=== PATIENT | female | born 1930 | race Caucasian/White ===

== ENCOUNTER 2018-02-26 12:39 | Inpatient (IN) ==
[2018-02-26] MEDS: *HR* OxyCODONE Immed Rel 5 MG TABLET PO PRN (20:10)
[2018-02-27 06:39] LABS: Basophils # 0.1 K/mcL (0.0-0.2); Basophils % 0.9 %; Eosinophils # 0.3 K/mcL (0.0-0.6); Eosinophils % 3.8 %; Hematocrit 31.9 % (35.3-44.9); Hemoglobin 10.7 g/dL (11.5-15.4); Immature Granulocytes % 0.6 % (0-4); Lymphocytes # 2.4 K/mcL (0.6-4.6); Lymphocytes % 27.1 %; Mean Corpuscular HGB Conc 33.5 g/dL (31.6-35.5); Mean Corpuscular Hemoglobin 31.3 pg (28.0-33.3); Mean Corpuscular Volume 93.3 fL (83.0-100.0); Mean Platelet Volume 11.1 fL (9.4-12.4); Monocytes # 0.8 K/mcL (0.0-1.3); Monocytes % 8.8 %; Neutrophils # 5.2 K/mcL (1.6-8.9); Platelet Count 174 K/mcL (140-400); Red Blood Count 3.42 M/mcL (3.82-4.97); Red Cell Distribution Width 14.3 % (11.5-14.5); Segmented Neutrophils % 58.8 %
[2018-02-27 06:45] LABS: INR 0.9; Prothrombin Time 10.6 Seconds (9.4-12.1)
[2018-02-27 06:48] LABS: Activated Partial Thrombo Time 26.5 Seconds (26.0-36.0)
[2018-02-27 07:15] LABS: Blood Urea Nitrogen 19 mg/dL (8-23); Calcium 8.7 mg/dL (8.6-10.3); Carbon Dioxide 30 mEq/L (23-29); Chloride 101 mEq/L (98-107); Glucose 89 mg/dL (70-105); Osmolality,Calculated 286 (280-300); Potassium 3.8 mEq/L (3.5-5.1); Sodium 137 mEq/L (136-145)
[2018-02-27 07:17] LABS: BUN/Creatinine Ratio 22 (6-26); eGFR For African Americans > 60 (> 60); eGFR For Non-African Americans > 60 (> 60)
[2018-02-27] MEDS: *HR* OxyCODONE Immed Rel 5 MG TABLET PO PRN ×2 (07:45→21:33)
[2018-02-27] MEDS: Ascorbic Acid 500 MG TABLET PO SCH (07:57)
[2018-02-27] MEDS: Cholecalciferol (D-3) 1,000 UNIT TABLET PO SCH (07:58)
[2018-02-27] MEDS: Aspirin Enteric Coated 81 MG Tablet PO SCH (07:58)
[2018-02-27] MEDS: Cyanocobalamin (B-12) 1,000 MCG TABLET PO SCH (07:58)
[2018-02-27] MEDS: Multivit/Ca/Min/Fe/FA 1 TAB TABLET PO SCH (07:58)
[2018-02-27] MEDS: Acetaminophen 325 MG TABLET PO PRN ×2 (10:45→17:07)
[2018-02-27] MEDS ORDERED: MOM Conc 10 ML UD.LIQ PO PRN (16:10)
--- NOTE | 2018-02-27 16:17 | Internal Med History&Physical ---
Date of Encounter: 02/27/18 Time of Encounter: 15:45 Assessment and Plan (1) Status post total hip replacement, right Current visit: No Status: Acute Physical therapy and occupational therapy evaluation with ongoing interventions will be done. Lovenox will be used for DVT prophylaxis. (2) Acute blood loss anemia Current visit: No Status: Acute Monitor CBC. (3) Postoperative urinary retention Current visit: No Status: Acute Continue Allen catheter. Urology follow-up as scheduled March 06. Internal Medicine - H&P: HPI Chief complaint: Hip replacement Admitted From: Hospital to Hospital Transfer Plans for Post Hospital Care: Home History of present illness: Ms. Turpin is a 87 year old female who was transferred to [facility] swing bed February 26 after a February [address] [facility] for elective total hip replacement. Postop course was remarkable for azotemia which resolved, anemia requiring blood transfusions, and urinary retention. Urology consulted and recommended indwelling Allen catheter for 1 week with urology follow-up 2017 in [place]. She has DJD but denies gout or other bone joint or muscle disorders. Past Med Surg Social Fam HX - Past Medical History Medical history: no medical history Additional medical history: OA Psychiatric history: no psych history - Past Surgical History Surgical History: non-contributory Additional surgical history: colonoscopy, d&c, colon polyps - Social History Smoking Status: Never smoker Smokeless Tobacco Status: No Alcohol use: none Drug use: none - Family History Mother Living Status: Hx Family Cancer: Yes (Breast) Father Living Status: Hx Family Cancer: Yes (Bladder) Internal Medicine - H&P: Meds Acetaminophen [Tylenol] 650 mg PO Q6HR PRN 02/23/18 [History] Ascorbic Acid [Vitamin C] 1,000 mg PO DAILY 02/23/18 [History] Aspirin Enteric Coated [Aspirin EC] 325 mg PO BID #20 tablet. 02/23/18 [Rx] Cholecalciferol (D-3) [Vitamin D] 1,000 unit PO DAILY 02/23/18 [History] Cyanocobalamin (Vitamin B-12) [Vitamin B-12] 1,000 mcg PO DAILY 02/23/18 [ History] Multivitamin [One Daily Multivitamin] 1 tab PO DAILY 02/23/18 [History] OxyCODONE Immed Rel [Roxicodone 5 MG] 5 mg PO Q6HR PRN 7 Days #28 tablet [Rx] 3 Allergy/AdvReac Type Severity Reaction Status Date / Time No Known Allergies Allergy Verified 02/23/18 12:30 All Systems PM: A 10-system review of systems was performed and is negative for pertinent findings except as documented above in the HPI. Review of systems: Gen.: She states her weight is stable the past few months Cardiovascular: She denies hypertension [place] heart failure angina DVT or pulmonary embolus Respiratory: She is a lifelong nonsmoker and denies chronic lung disease GI: She denies disorders of her liver gallbladder or exocrine pancreas : She denies hematuria dysuria or kidney stones. She has had urinary retention requiring Allen catheter following hip replacement surgery as per history of present illness. Neurologic: She denies large distribution strokes or seizures. Endocrine: She denies diabetes thyroid disease or hyperlipidemia Hematology/oncology: She had anemia during a recent [facility] stay requiring blood transfusion. She takes vitamin B12 at home. She denies internal malignancies or other blood disorders. Psychiatric: She denies anxiety depression or other mental health issues [place] skeletal: As per history of present illness: - Constitutional Vitals: Temp Pulse Resp BP Pulse Ox 97.9 F 96 16 133/75 96 02/27/18 08:49 02/27/18 08:49 02/27/18 08:49 02/27/18 08:49 02/27/18 08:49 Exam: Gen.: She is a well-developed well-nourished female resting comfortably in bed who appears in no acute distress at present time HEENT: Head is atraumatic and normocephalic. Eyes: EOMI. There is no scleral icterus. Mouth: Mucosa is moist. Neck: Supple and nontender. There is no thyromegaly or adenopathy noted. Heart: Regular without murmurs gallops or ectopics Lungs: No wheezes or crackles are heard. Abdomen: Soft and nontender. No masses or guarding are noted. Extremities: There is no cyanosis or clubbing noted. There is no edema of the left leg. There is 1+ edema of the dorsum of the right foot and lower leg. Dorsalis pedis and posttibial pulses are 1+ palpable in the left leg and trace palpable in the right leg. Neurologic: Mental status: She is talkative and a good historian. Cranial nerves: Smile is symmetric. Forehead wrinkles bilaterally. Tongue protrudes midline. EOMI. Motor: There is no pronator drift. Cerebellar: Finger to nose is intact bilaterally. Skin: Warm and dry Internal Med - H&P Results - Labs CBC & Chem 7: 02/27/18 06:16 02/27/18 06:16 Labs: Short CBC 02/27/18 Range/Units 06:16 WBC 8.9 (4.3-11.1) K/mcL Hgb 10.7 L (11.5-15.4) g/dL Hct 31.9 L (35.3-44.9) % Plt Count 174 (140-400) K/mcL Neutrophils # 5.2 (1.6-8.9) K/mcL BMP 02/27/18 06:16 Sodium 137 Potassium 3.8 Chloride 101 Carbon Dioxide 30 H BUN 19 Creatinine 0.86 Glucose 89 Calcium 8.7
[2018-02-27] MEDS: *HR* Enoxaparin 40 MG/0.4 ML SYRINGE SQ SCH (17:08)
[2018-02-28] MEDS: *HR* Enoxaparin 40 MG/0.4 ML SYRINGE SQ SCH (06:18)
[2018-02-28] MEDS: Aspirin Enteric Coated 81 MG Tablet PO SCH (08:54)
[2018-02-28] MEDS: Multivit/Ca/Min/Fe/FA 1 TAB TABLET PO SCH (08:54)
[2018-02-28] MEDS: Cyanocobalamin (B-12) 1,000 MCG TABLET PO SCH (08:54)
[2018-02-28] MEDS: Ascorbic Acid 500 MG TABLET PO SCH (08:54)
[2018-02-28] MEDS: Cholecalciferol (D-3) 1,000 UNIT TABLET PO SCH (08:55)
--- NOTE | 2018-02-28 15:04 | Internal Med Progress Note ---
Date of Encounter: 02/28/18 Time of Encounter: 14:55 - Assessment and plan (1) Status post total hip replacement, right Current Visit: No Status: Acute Assessment and plan: February 28. Continue therapy interventions with Lovenox. (2) Acute blood loss anemia Current Visit: No Status: Acute Assessment and plan: February 28. Hemoglobin improved to 10.7. Continue to monitor CBC periodically. (3) Postoperative urinary retention Current Visit: No Status: Acute Assessment and plan: February 28. Continue Allen catheter with urology follow-up March 06. - Subjective Interval history: February 28. She has no new complaints. - Constitutional Vitals: Temp Pulse Resp BP Pulse Ox 98 F 75 16 120/70 97 02/28/18 06:19 02/28/18 06:19 02/28/18 06:19 02/28/18 06:19 02/28/18 06:19 Exam: She is resting comfortably in bed and appears in no acute distress. Her affect is bright and cheerful. Extremities show unchanged edema from yesterday. I reviewed her medications and lab results. Internal Medicine: Result - Labs CBC & Chem 7: 02/27/18 06:16 02/27/18 06:16 - ABG Interpretation ABG results: PT/INR, D-dimer PT 10.6 Seconds (9.4-12.1) 02/27/18 06:16 Consult Discharge Plan - Plan Referrals: Aron Patel MD [Primary Care Provider] - 1 week
[2018-02-28] MEDS: *HR* OxyCODONE Immed Rel 5 MG TABLET PO PRN (18:02)
[2018-02-28] MEDS: Acetaminophen 325 MG TABLET PO PRN (23:57)
[2018-03-01] MEDS: Acetaminophen 325 MG TABLET PO PRN ×2 (08:02→15:28)
[2018-03-01] MEDS: Ascorbic Acid 500 MG TABLET PO SCH (08:02)
[2018-03-01] MEDS: Cholecalciferol (D-3) 1,000 UNIT TABLET PO SCH (08:02)
[2018-03-01] MEDS: Aspirin Enteric Coated 81 MG Tablet PO SCH (08:02)
[2018-03-01] MEDS: Cyanocobalamin (B-12) 1,000 MCG TABLET PO SCH (08:02)
[2018-03-01] MEDS: Multivit/Ca/Min/Fe/FA 1 TAB TABLET PO SCH (08:03)
[2018-03-01] MEDS: *HR* Enoxaparin 40 MG/0.4 ML SYRINGE SQ SCH (08:03)
--- NOTE | 2018-03-01 11:38 | Internal Med Progress Note ---
Date of Encounter: 03/01/18 Time of Encounter: 11:30 - Assessment and plan (1) Status post total hip replacement, right Current Visit: No Status: Acute Assessment and plan: February 28. Continue therapy interventions with Lovenox. (2) Acute blood loss anemia Current Visit: No Status: Acute Assessment and plan: February 28. Hemoglobin improved to 10.7. Continue to monitor CBC periodically. March 01. Recheck labs in a.m. including iron studies. (3) Postoperative urinary retention Current Visit: No Status: Acute Assessment and plan: February 28. Continue Allen catheter with urology follow-up March 06. (4) RLS (restless legs syndrome) Current Visit: Yes Status: Acute Assessment and plan: March 01. Check iron studies and start low-dose Neurontin. (5) Cold sore Current Visit: Yes Status: Acute Assessment and plan: March 01. I explained she was probably past the time where antiviral agents would be beneficial. She will use topical Chapstick etc. for symptomatic relief. - Subjective Interval history: February 28. She has no new complaints. March 01. She has no new complaints except she has small "cold sores" on her upper lip that been present for at least 2 days. She also reports she had recurrent episode of "leg jerking" last evening. She has had this occasionally in the past. - Constitutional Vitals: Temp Pulse Resp BP Pulse Ox 98.4 F 89 18 135/74 97 03/01/18 07:48 03/01/18 07:48 03/01/18 07:48 03/01/18 07:48 03/01/18 07:48 Exam: She is resting comfortably in bed and appears in no acute distress. She has very small erosions at the upper border of her upper lip. No open ulcerative areas are seen. Her right leg edema is perhaps slightly lessened. I reviewed her medications and lab results. Internal Medicine: Result - Labs CBC & Chem 7: 02/27/18 06:16 02/27/18 06:16 - ABG Interpretation ABG results: PT/INR, D-dimer PT 10.6 Seconds (9.4-12.1) 02/27/18 06:16 Consult Discharge Plan - Plan Referrals: Aron Patel MD [Primary Care Provider] - 1 week
[2018-03-01] MEDS: *HR* OxyCODONE Immed Rel 5 MG TABLET PO PRN (21:23)
[2018-03-01] MEDS: Gabapentin 100 MG CAPSULE PO SCH (23:01)
[2018-03-02 06:09] LABS: Basophils # 0.1 K/mcL (0.0-0.2); Basophils % 1.2 %; Eosinophils # 0.4 K/mcL (0.0-0.6); Eosinophils % 5.4 %; Hematocrit 31.7 % (35.3-44.9); Hemoglobin 10.8 g/dL (11.5-15.4); Lymphocytes # 2.1 K/mcL (0.6-4.6); Lymphocytes % 26.4 %; Mean Corpuscular HGB Conc 34.1 g/dL (31.6-35.5); Mean Corpuscular Hemoglobin 32.1 pg (28.0-33.3); Mean Corpuscular Volume 94.3 fL (83.0-100.0); Mean Platelet Volume 10.7 fL (9.4-12.4); Monocytes # 0.9 K/mcL (0.0-1.3); Monocytes % 11.5 %; Neutrophils # 4.4 K/mcL (1.6-8.9); Platelet Count 262 K/mcL (140-400); Red Blood Count 3.36 M/mcL (3.82-4.97); Red Cell Distribution Width 13.9 % (11.5-14.5); Segmented Neutrophils % 54.5 %
[2018-03-02] MEDS: *HR* Enoxaparin 40 MG/0.4 ML SYRINGE SQ SCH (06:27)
[2018-03-02 08:58] LABS: % Iron Saturation 25 % (15-50); Iron 63 mcg/dL (50-170); Transferrin 179 mg/dL (203-362)
[2018-03-02 09:16] LABS: Ferritin 190 ng/mL (10-120)
[2018-03-02] MEDS: Aspirin Enteric Coated 81 MG Tablet PO SCH (09:36)
[2018-03-02] MEDS: Cyanocobalamin (B-12) 1,000 MCG TABLET PO SCH (09:36)
[2018-03-02] MEDS: Cholecalciferol (D-3) 1,000 UNIT TABLET PO SCH (09:36)
[2018-03-02] MEDS: Multivit/Ca/Min/Fe/FA 1 TAB TABLET PO SCH (09:36)
[2018-03-02] MEDS: Ascorbic Acid 500 MG TABLET PO SCH (09:36)
[2018-03-02] MEDS: Acetaminophen 325 MG TABLET PO PRN ×2 (09:37→16:59)
[2018-03-02 16:50] LABS: Bilirubin,Urine Negative (Negative); Blood,Urine Moderate (Negative); Clarity,Urine Clear (Clear); Color,Urine Yellow (Yellow); Glucose,Urine (UA) Normal (Normal); Ketones,Urine Trace mg/dL (Negative); Leukocyte Esterase,Urine Large (Negative); Nitrite,Urine Negative (Negative); Protein,Urine Negative (Neg-Trace); Urobilinogen,Urine Normal (Normal)
[2018-03-02 17:01] LABS: Bacteria,Urine Moderate per hpf (None-Few); Granular Casts,Urine Few per lpf (None Seen); Squamous Epithelial Cell,Urine None Seen per lpf (None-Few)
--- NOTE | 2018-03-02 18:34 | Internal Med Progress Note ---
Date of Encounter: 03/02/18 Time of Encounter: 18:15 - Assessment and plan (1) Status post total hip replacement, right Current Visit: No Status: Acute Assessment and plan: February 28. Continue therapy interventions with Lovenox. March 02. Continue therapy. Lovenox will be discontinued and Xarelto started since she has DVT in right posterior tibial, right peroneal, and right gastrocnemius vein. (2) Right leg DVT Current Visit: Yes Status: Acute Assessment and plan: March 02. Discontinue Lovenox and begin Xarelto. I explained she would likely need anticoagulation for a minimum of 3 months. Qualifiers: Affected thrombotic vein of extremity: unspecified vein of extremity Chronicity: acute Qualified Code(s): I82.401 - Acute embolism and thrombosis of unspecified deep veins of right lower extremity (3) Acute blood loss anemia Current Visit: No Status: Acute Assessment and plan: February 28. Hemoglobin improved to 10.7. Continue to monitor CBC periodically. March 01. Recheck labs in a.m. including iron studies. March 02. Hemoglobin improved to 10.8. Anemia testing showed iron 63, transferrin saturation 25%, transferrin 179, and ferritin 190. (4) Postoperative urinary retention Current Visit: No Status: Acute Assessment and plan: February 28. Continue Allen catheter with urology follow-up March 06. (5) RLS (restless legs syndrome) Current Visit: Yes Status: Acute Assessment and plan: March 01. Check iron studies and start low-dose Neurontin. March 02. Iron studies did not show iron deficiency. Family did not wish her to take Neurontin. (6) Cold sore Current Visit: Yes Status: Acute Assessment and plan: March 01. I explained she was probably past the time where antiviral agents would be beneficial. She will use topical Chapstick etc. for symptomatic relief. (7) UTI (urinary tract infection) Current Visit: Yes Status: Acute Assessment and plan: Urine culture was sent earlier today. She will start Bactrim DS twice a day with lactobacillus. Qualifiers: Urinary tract infection type: site unspecified Hematuria presence: with hematuria Qualified Code(s): N39.0 - Urinary tract infection, site not specified; R31.9 - Hematuria, unspecified - Subjective Interval history: February 28. She has no new complaints. March 01. She has no new complaints except she has small "cold sores" on her upper lip that been present for at least 2 days. She also reports she had recurrent episode of "leg jerking" last evening. She has had this occasionally in the past. March 02. Her family was concerned about the swelling in the right leg and requested Doppler study be done. Patient also had some discomfort around the Allen catheter and family requested UA with C/S be done. She has no other new complaints. - Constitutional Vitals: Temp Pulse Resp BP Pulse Ox 98.3 F 76 15 114/72 95 03/02/18 08:00 03/02/18 08:00 03/02/18 08:00 03/02/18 08:00 03/02/18 08:00 Exam: She is resting comfortably in bed and appears in no acute distress. Her affect is overall cheerful. I reviewed her medications and lab results. I discussed the UA report and venous Doppler study with patient and daughter. Internal Medicine: Result - Labs CBC & Chem 7: 03/02/18 05:10 02/27/18 06:16 Labs: Short CBC 03/02/18 Range/Units 05:10 WBC 8.1 (4.3-11.1) K/mcL Hgb 10.8 L (11.5-15.4) g/dL Hct 31.7 L (35.3-44.9) % Plt Count 262 D (140-400) K/mcL Neutrophils # 4.4 (1.6-8.9) K/mcL Urine 03/02/18 Range/Units 16:20 Urine Color Yellow (Yellow) Urine Clarity Clear (Clear) Urine pH 7.0 (5.0-8.0) pH Units Ur Specific [place] 1.010 (1.010-1.025) Urine Protein Negative (Neg-Trace) mg/dL Urine Glucose (UA) Normal (Normal) mg/dL - ABG Interpretation ABG results: PT/INR, D-dimer PT 10.6 Seconds (9.4-12.1) 02/27/18 06:16 Consult Discharge Plan - Plan Referrals: Aron Patel MD [Primary Care Provider] - 1 week
[2018-03-02] MEDS: Gabapentin 100 MG CAPSULE PO SCH (19:36)
[2018-03-02] MEDS: *HR* Rivaroxaban 15 MG TABLET PO SCH (20:33)
[2018-03-02] MEDS: Lactobacillus 1 EACH CAP.SPRINK PO SCH (20:33)
[2018-03-02] MEDS: *HR* OxyCODONE Immed Rel 5 MG TABLET PO PRN (20:35)
[2018-03-02] MEDS ORDERED: Sulfamethoxazole/Trimeth DS 1 EACH TABLET PO SCH (21:00)
[2018-03-03] MEDS: *HR* OxyCODONE Immed Rel 5 MG TABLET PO PRN ×3 (04:01→20:04)
[2018-03-03] MEDS: Ascorbic Acid 500 MG TABLET PO SCH (08:22)
[2018-03-03] MEDS: *HR* Rivaroxaban 15 MG TABLET PO SCH ×2 (08:23→20:05)
[2018-03-03] MEDS: Cholecalciferol (D-3) 1,000 UNIT TABLET PO SCH (08:23)
[2018-03-03] MEDS: Lactobacillus 1 EACH CAP.SPRINK PO SCH ×2 (08:23→20:05)
[2018-03-03] MEDS: Cyanocobalamin (B-12) 1,000 MCG TABLET PO SCH (08:23)
[2018-03-03] MEDS: Sulfamethoxazole/Trimeth DS 1 EACH TABLET PO SCH ×2 (08:23→20:04)
[2018-03-03] MEDS: Multivit/Ca/Min/Fe/FA 1 TAB TABLET PO SCH (08:23)
--- NOTE | 2018-03-03 19:07 | Internal Med Progress Note ---
Date of Encounter: 03/03/18 Time of Encounter: 18:55 - Assessment and plan (1) Status post total hip replacement, right Current Visit: No Status: Acute Assessment and plan: February 28. Continue therapy interventions with Lovenox. March 02. Continue therapy. Lovenox will be discontinued and Xarelto started since she has DVT in right posterior tibial, right peroneal, and right gastrocnemius vein. March 03. Continue PT/OT with Xarelto. (2) Right leg DVT Current Visit: Yes Status: Acute Assessment and plan: March 02. Discontinue Lovenox and begin Xarelto. I explained she would likely need anticoagulation for a minimum of 3 months. March 03. Continue Xarelto. Qualifiers: Affected thrombotic vein of extremity: unspecified vein of extremity Chronicity: acute Qualified Code(s): I82.401 - Acute embolism and thrombosis of unspecified deep veins of right lower extremity (3) Acute blood loss anemia Current Visit: No Status: Acute Assessment and plan: February 28. Hemoglobin improved to 10.7. Continue to monitor CBC periodically. March 01. Recheck labs in a.m. including iron studies. March 02. Hemoglobin improved to 10.8. Anemia testing showed iron 63, transferrin saturation 25%, transferrin 179, and ferritin 190. (4) Postoperative urinary retention Current Visit: No Status: Acute Assessment and plan: February 28. Continue Allen catheter with urology follow-up March 06. (5) RLS (restless legs syndrome) Current Visit: Yes Status: Acute Assessment and plan: March 01. Check iron studies and start low-dose Neurontin. March 02. Iron studies did not show iron deficiency. Family did not wish her to take Neurontin. (6) Cold sore Current Visit: Yes Status: Acute Assessment and plan: March 01. I explained she was probably past the time where antiviral agents would be beneficial. She will use topical Chapstick etc. for symptomatic relief. (7) UTI (urinary tract infection) Current Visit: Yes Status: Acute Assessment and plan: March 02. Urine culture was sent earlier today. She will start Bactrim DS twice a day with lactobacillus. March 03. Continue Bactrim DS with lactobacillus. Qualifiers: Urinary tract infection type: site unspecified Hematuria presence: with hematuria Qualified Code(s): N39.0 - Urinary tract infection, site not specified; R31.9 - Hematuria, unspecified - Subjective Interval history: February 28. She has no new complaints. March 01. She has no new complaints except she has small "cold sores" on her upper lip that been present for at least 2 days. She also reports she had recurrent episode of "leg jerking" last evening. She has had this occasionally in the past. March 02. Her family was concerned about the swelling in the right leg and requested Doppler study be done. Patient also had some discomfort around the Allen catheter and family requested UA with C/S be done. She has no other new complaints. March 03. She has no new complaints. - Constitutional Vitals: Temp Pulse Resp BP Pulse Ox 98.1 F 74 15 115/60 96 03/03/18 07:18 03/03/18 07:18 03/03/18 07:18 03/03/18 07:18 03/03/18 07:18 Exam: She is sitting in a chair at bedside resting currently. Her feet are elevated on the stool. The right leg shows 1+ edema and the left leg has no pitting edema. I reviewed her medications and lab results. Internal Medicine: Result - Labs CBC & Chem 7: 03/02/18 05:10 02/27/18 06:16 - ABG Interpretation ABG results: PT/INR, D-dimer PT 10.6 Seconds (9.4-12.1) 02/27/18 06:16 Consult Discharge Plan - Plan Referrals: Aron Patel MD [Primary Care Provider] - 1 week
[2018-03-03] MEDS: Gabapentin 100 MG CAPSULE PO SCH (19:25)
[2018-03-04] MEDS: *HR* OxyCODONE Immed Rel 5 MG TABLET PO PRN ×2 (07:58→22:31)
[2018-03-04] MEDS: Ascorbic Acid 500 MG TABLET PO SCH (10:06)
[2018-03-04] MEDS: Cyanocobalamin (B-12) 1,000 MCG TABLET PO SCH (10:06)
[2018-03-04] MEDS: *HR* Rivaroxaban 15 MG TABLET PO SCH ×2 (10:06→22:31)
[2018-03-04] MEDS: Multivit/Ca/Min/Fe/FA 1 TAB TABLET PO SCH (10:06)
[2018-03-04] MEDS: Cholecalciferol (D-3) 1,000 UNIT TABLET PO SCH (10:06)
[2018-03-04] MEDS: Lactobacillus 1 EACH CAP.SPRINK PO SCH ×2 (10:06→22:31)
[2018-03-04] MEDS: Sulfamethoxazole/Trimeth DS 1 EACH TABLET PO SCH ×2 (10:06→22:31)
[2018-03-04] MEDS: Gabapentin 100 MG CAPSULE PO SCH (22:31)
[2018-03-05] MEDS: Sulfamethoxazole/Trimeth DS 1 EACH TABLET PO SCH (08:16)
[2018-03-05] MEDS: Lactobacillus 1 EACH CAP.SPRINK PO SCH ×2 (08:16→21:33)
[2018-03-05] MEDS: *HR* Rivaroxaban 15 MG TABLET PO SCH ×2 (08:17→21:33)
[2018-03-05] MEDS: Acetaminophen 325 MG TABLET PO PRN ×2 (08:20→14:35)
[2018-03-05] MEDS ORDERED: Multivit/Ca/Min/Fe/FA 1 TAB TABLET PO SCH (12:00)
[2018-03-05] MEDS: Ascorbic Acid 500 MG TABLET PO SCH (14:33)
[2018-03-05] MEDS: Cholecalciferol (D-3) 1,000 UNIT TABLET PO SCH (14:33)
[2018-03-05] MEDS: Cyanocobalamin (B-12) 1,000 MCG TABLET PO SCH (14:34)
[2018-03-05] MEDS: Sulfamethoxazole/Trimeth Oral Soln 400-80mg/10 ML UDC PO SCH (21:32)
[2018-03-05] MEDS: Docusate Oral Soln 100 MG/10 ML UDC PO SCH (21:33)
[2018-03-05] MEDS: Gabapentin 100 MG CAPSULE PO SCH (21:33)
[2018-03-05] MEDS: *HR* OxyCODONE Immed Rel 5 MG TABLET PO PRN (21:33)
[2018-03-06] MEDS: Lactobacillus 1 EACH CAP.SPRINK PO SCH (07:52)
[2018-03-06] MEDS: *HR* Rivaroxaban 15 MG TABLET PO SCH ×2 (07:52→20:28)
[2018-03-06] MEDS: Sulfamethoxazole/Trimeth Oral Soln 400-80mg/10 ML UDC PO SCH (07:52)
[2018-03-06] MEDS: *HR* OxyCODONE Immed Rel 5 MG TABLET PO PRN ×2 (07:52→17:39)
[2018-03-06] MEDS: Docusate Oral Soln 100 MG/10 ML UDC PO SCH (07:52)
[2018-03-06] MEDS: Multivitamin Liquid 15 ML UDC PO SCH (12:37)
[2018-03-06] MEDS: Ascorbic Acid 500 MG TABLET PO SCH (12:38)
[2018-03-06] MEDS: Cyanocobalamin (B-12) 1,000 MCG TABLET PO SCH (12:38)
[2018-03-06] MEDS: Cholecalciferol (D-3) 1,000 UNIT TABLET PO SCH (12:38)
--- NOTE | 2018-03-06 16:10 | Internal Med Progress Note ---
Date of Encounter: 03/06/18 Time of Encounter: 16:00 - Assessment and plan (1) Status post total hip replacement, right Current Visit: No Status: Acute Assessment and plan: February 28. Continue therapy interventions with Lovenox. March 02. Continue therapy. Lovenox will be discontinued and Xarelto started since she has DVT in right posterior tibial, right peroneal, and right gastrocnemius vein. March 03. Continue PT/OT with Xarelto. (2) Right leg DVT Current Visit: Yes Status: Acute Assessment and plan: March 02. Discontinue Lovenox and begin Xarelto. I explained she would likely need anticoagulation for a minimum of 3 months. March 03. Continue Xarelto. Qualifiers: Affected thrombotic vein of extremity: unspecified vein of extremity Chronicity: acute Qualified Code(s): I82.401 - Acute embolism and thrombosis of unspecified deep veins of right lower extremity (3) Acute blood loss anemia Current Visit: No Status: Acute Assessment and plan: February 28. Hemoglobin improved to 10.7. Continue to monitor CBC periodically. March 01. Recheck labs in a.m. including iron studies. March 02. Hemoglobin improved to 10.8. Anemia testing showed iron 63, transferrin saturation 25%, transferrin 179, and ferritin 190. (4) Postoperative urinary retention Current Visit: No Status: Acute Assessment and plan: February 28. Continue Allen catheter with urology follow-up March 06. March 06. Allen catheter removed. No further urology follow-up is planned. (5) RLS (restless legs syndrome) Current Visit: Yes Status: Acute Assessment and plan: March 01. Check iron studies and start low-dose Neurontin. March 02. Iron studies did not show iron deficiency. Family did not wish her to take Neurontin. (6) Cold sore Current Visit: Yes Status: Acute Assessment and plan: March 01. I explained she was probably past the time where antiviral agents would be beneficial. She will use topical Chapstick etc. for symptomatic relief. (7) UTI (urinary tract infection) Current Visit: Yes Status: Acute Assessment and plan: March 02. Urine culture was sent earlier today. She will start Bactrim DS twice a day with lactobacillus. March 03. Continue Bactrim DS with lactobacillus. March 06. Will discontinue Bactrim and lactobacillus. Qualifiers: Urinary tract infection type: site unspecified Hematuria presence: with hematuria Qualified Code(s): N39.0 - Urinary tract infection, site not specified; R31.9 - Hematuria, unspecified - Subjective Interval history: February 28. She has no new complaints. March 01. She has no new complaints except she has small "cold sores" on her upper lip that been present for at least 2 days. She also reports she had recurrent episode of "leg jerking" last evening. She has had this occasionally in the past. March 02. Her family was concerned about the swelling in the right leg and requested Doppler study be done. Patient also had some discomfort around the Allen catheter and family requested UA with C/S be done. She has no other new complaints. March 03. She has no new complaints. March 06. She has no new complaints. She saw urologist this morning and Allen was discontinued. - Constitutional Vitals: Temp Pulse Resp BP Pulse Ox 98.1 F 78 16 106/53 98 03/06/18 06:30 03/06/18 06:30 03/06/18 06:30 03/06/18 06:30 03/06/18 06:30 Exam: She is resting comfortably in a chair at bedside. Her right leg has minimal decrease in edema. The left leg shows no edema. There is a palpable soft mass in the medial posterior popliteal area consistent with either fatty tissue or cyst. It is nontender to palpation. Her affect is bright and cheerful. I reviewed her medications and lab results. Internal Medicine: Result - Labs CBC & Chem 7: 03/02/18 05:10 02/27/18 06:16 - ABG Interpretation ABG results: PT/INR, D-dimer PT 10.6 Seconds (9.4-12.1) 02/27/18 06:16 Consult Discharge Plan - Plan Referrals: Aron Patel MD [Primary Care Provider] - 1 week
[2018-03-06] MEDS: Gabapentin 100 MG CAPSULE PO SCH (20:28)
[2018-03-06] MEDS: Acetaminophen 325 MG TABLET PO PRN (22:19)
[2018-03-07] MEDS: *HR* Rivaroxaban 15 MG TABLET PO SCH ×2 (09:09→21:23)
[2018-03-07] MEDS: Multivitamin Liquid 15 ML UDC PO SCH (11:56)
[2018-03-07] MEDS: Cholecalciferol (D-3) 1,000 UNIT TABLET PO SCH (11:56)
[2018-03-07] MEDS: Ascorbic Acid 500 MG TABLET PO SCH (11:57)
[2018-03-07] MEDS: Cyanocobalamin (B-12) 1,000 MCG TABLET PO SCH (11:57)
[2018-03-08] MEDS: Acetaminophen 325 MG TABLET PO PRN ×2 (00:02→20:35)
[2018-03-08] MEDS: *HR* Rivaroxaban 15 MG TABLET PO SCH ×2 (08:46→20:37)
[2018-03-08] MEDS: Cholecalciferol (D-3) 1,000 UNIT TABLET PO SCH (12:45)
[2018-03-08] MEDS: Cyanocobalamin (B-12) 1,000 MCG TABLET PO SCH (12:48)
[2018-03-09] MEDS: Acetaminophen 325 MG TABLET PO PRN (08:03)
[2018-03-09] MEDS: *HR* Rivaroxaban 15 MG TABLET PO SCH ×2 (08:03→23:42)
[2018-03-09] MEDS: Cholecalciferol (D-3) 1,000 UNIT TABLET PO SCH (12:30)
[2018-03-09] MEDS: Cyanocobalamin (B-12) 1,000 MCG TABLET PO SCH (12:31)
--- NOTE | 2018-03-09 16:22 | Internal Med Progress Note ---
Date of Encounter: 03/09/18 Time of Encounter: 16:10 - Assessment and plan (1) Status post total hip replacement, right Current Visit: No Status: Acute Assessment and plan: February 28. Continue therapy interventions with Lovenox. March 02. Continue therapy. Lovenox will be discontinued and Xarelto started since she has DVT in right posterior tibial, right peroneal, and right gastrocnemius vein. March 03. Continue PT/OT with Xarelto. March 09. Anticipate discharge to [facility] 03/11/2018. (2) Right leg DVT Current Visit: Yes Status: Acute Assessment and plan: March 02. Discontinue Lovenox and begin Xarelto. I explained she would likely need anticoagulation for a minimum of 3 months. March 03. Continue Xarelto. Qualifiers: Affected thrombotic vein of extremity: unspecified vein of extremity Chronicity: acute Qualified Code(s): I82.401 - Acute embolism and thrombosis of unspecified deep veins of right lower extremity (3) Acute blood loss anemia Current Visit: No Status: Acute Assessment and plan: February 28. Hemoglobin improved to 10.7. Continue to monitor CBC periodically. March 01. Recheck labs in a.m. including iron studies. March 02. Hemoglobin improved to 10.8. Anemia testing showed iron 63, transferrin saturation 25%, transferrin 179, and ferritin 190. March 09. Recheck labs in a.m. (4) Postoperative urinary retention Current Visit: No Status: Acute Assessment and plan: February 28. Continue Allen catheter with urology follow-up March 06. March 06. Allen catheter removed. No further urology follow-up is planned. (5) RLS (restless legs syndrome) Current Visit: Yes Status: Acute Assessment and plan: March 01. Check iron studies and start low-dose Neurontin. March 02. Iron studies did not show iron deficiency. Family did not wish her to take Neurontin. (6) Cold sore Current Visit: Yes Status: Acute Assessment and plan: March 01. I explained she was probably past the time where antiviral agents would be beneficial. She will use topical Chapstick etc. for symptomatic relief. (7) UTI (urinary tract infection) Current Visit: Yes Status: Acute Assessment and plan: March 02. Urine culture was sent earlier today. She will start Bactrim DS twice a day with lactobacillus. March 03. Continue Bactrim DS with lactobacillus. March 06. Will discontinue Bactrim and lactobacillus. Qualifiers: Urinary tract infection type: site unspecified Hematuria presence: with hematuria Qualified Code(s): N39.0 - Urinary tract infection, site not specified; R31.9 - Hematuria, unspecified - Subjective Interval history: February 28. She has no new complaints. March 01. She has no new complaints except she has small "cold sores" on her upper lip that been present for at least 2 days. She also reports she had recurrent episode of "leg jerking" last evening. She has had this occasionally in the past. March 02. Her family was concerned about the swelling in the right leg and requested Doppler study be done. Patient also had some discomfort around the Allen catheter and family requested UA with C/S be done. She has no other new complaints. March 03. She has no new complaints. March 06. She has no new complaints. She saw urologist this morning and Allen was discontinued. March 09. She has no new complaints. - Constitutional Vitals: Temp Pulse Resp BP Pulse Ox 97.7 F 68 15 111/66 97 03/09/18 06:39 03/09/18 06:39 03/09/18 06:39 03/09/18 06:39 03/09/18 06:39 Exam: She is resting comfortably in bed and appears in no acute distress. Her affect is cheerful. She has 1+ edema of the right leg and no edema on the left leg. I reviewed her medications and lab results. Internal Medicine: Result - Labs CBC & Chem 7: 03/02/18 05:10 02/27/18 06:16 - ABG Interpretation ABG results: PT/INR, D-dimer PT 10.6 Seconds (9.4-12.1) 02/27/18 06:16 Consult Discharge Plan - Plan Referrals: Aron Patel MD [Primary Care Provider] - 1 week
[2018-03-09] MEDS ORDERED: Melatonin 3 MG TABLET PO PRN (21:35)
[2018-03-09] MEDS: Melatonin 3 MG TABLET PO PRN (23:42)
[2018-03-10 06:35] LABS: Basophils # 0.1 K/mcL (0.0-0.2); Basophils % 1.1 %; Eosinophils # 0.2 K/mcL (0.0-0.6); Eosinophils % 3.3 %; Hematocrit 30.3 % (35.3-44.9); Hemoglobin 9.9 g/dL (11.5-15.4); Immature Granulocytes % 0.4 % (0-4); Lymphocytes # 1.9 K/mcL (0.6-4.6); Lymphocytes % 27.5 %; Mean Corpuscular HGB Conc 32.7 g/dL (31.6-35.5); Mean Corpuscular Hemoglobin 31.3 pg (28.0-33.3); Mean Corpuscular Volume 95.9 fL (83.0-100.0); Mean Platelet Volume 10.4 fL (9.4-12.4); Monocytes # 0.6 K/mcL (0.0-1.3); Monocytes % 8.7 %; Neutrophils # 4.1 K/mcL (1.6-8.9); Platelet Count 338 K/mcL (140-400); Red Blood Count 3.16 M/mcL (3.82-4.97); Red Cell Distribution Width 13.9 % (11.5-14.5)
[2018-03-10 06:51] LABS: BUN/Creatinine Ratio 25 (6-26); Blood Urea Nitrogen 24 mg/dL (8-23); Carbon Dioxide 29 mEq/L (23-29); Chloride 102 mEq/L (98-107); Glucose 81 mg/dL (70-105); Osmolality,Calculated 289 (280-300); Potassium 4.1 mEq/L (3.5-5.1); Sodium 138 mEq/L (136-145); eGFR For African Americans > 60 (> 60); eGFR For Non-African Americans 55 (> 60)
[2018-03-10] MEDS: *HR* Rivaroxaban 15 MG TABLET PO SCH ×2 (08:36→21:42)
[2018-03-10] MEDS: Cholecalciferol (D-3) 1,000 UNIT TABLET PO SCH (12:36)
[2018-03-10] MEDS: Cyanocobalamin (B-12) 1,000 MCG TABLET PO SCH ×2 (12:36→12:39)
[2018-03-10] MEDS: Melatonin 3 MG TABLET PO PRN (21:42)
[2018-03-11 06:37] VITALS: BP 122/65
[2018-03-11] MEDS: *HR* Rivaroxaban 15 MG TABLET PO SCH (08:31)
--- NOTE | 2018-03-11 11:11 | Discharge Summary ---
Date of Encounter: 03/11/18 Time of Encounter: 10:55 - Discharge Diagnosis (1) Status post total hip replacement, right Priority: Primary Status: Acute (2) Right leg DVT Priority: Secondary Status: Acute Qualifiers: Affected thrombotic vein of extremity: unspecified vein of extremity Chronicity: acute Qualified Code(s): I82.401 - Acute embolism and thrombosis of unspecified deep veins of right lower extremity (3) Acute blood loss anemia Priority: Secondary Status: Acute (4) Postoperative urinary retention Priority: Secondary Status: Resolved (5) RLS (restless legs syndrome) Priority: Secondary Status: Chronic (6) Cold sore Priority: Secondary Status: Resolved (7) UTI (urinary tract infection) Priority: Secondary Status: Resolved Qualifiers: Urinary tract infection type: site unspecified Hematuria presence: with hematuria Qualified Code(s): N39.0 - Urinary tract infection, site not specified; R31.9 - Hematuria, unspecified Hospital course: Ms. Turpin is a 87 year old female who was transferred to [facility] swing bed February 26 after a February 23 hospitalization at [facility] for elective total hip replacement. Postop course was remarkable for azotemia which resolved, anemia requiring blood transfusions, and urinary retention. Urology consulted and recommended indwelling Allen catheter for 1 week with urology follow-up 2017 in [place]. Initial orders were written by the discharging physicians at [facility]. I saw her on February 27 and performed the swing bed history and physical. Follow-up appointment with urology was on March 06. The Allen catheter was discontinued and she had no further voiding difficulties. Right leg ultrasound on March 02 showed DVTs in right posterior tibial, right peroneal, and right gastrocnemius veins. She was started on Xarelto 15 mg twice a day which will be continued through March 23. She will then transition to Xarelto 20 mg daily to complete a 3 month course. CBC will be monitored at the [facility]. Iron studies did not show iron deficiency. Family did not wish her to take Neurontin for RLS but wished a trial of magnesium oxide. B12 level returned > 1500. Supplemental B12 will be discontinued for now. Vitamin D level returned satisfactory at 69. On March 11 arrangements were complete her to be discharged to [facility] for ongoing care needs. She will follow with me there. - Time Spent with Patient Total time spent providing and/or coordinating discharge services: - Discharge Medications Prescriptions: OxyCODONE Immed Rel [Roxicodone 5 MG] 5 mg PO Q6HR PRN 7 Days #28 tablet PRN Reason: Severe Pain Home Medications: Acetaminophen [Tylenol] 650 mg PO Q6HR PRN 02/23/18 [History] Cholecalciferol (D-3) [Vitamin D] 1,000 unit PO DAILY 02/23/18 [History] Multivitamin [One Daily Multivitamin] 1 tab PO DAILY 02/23/18 [History] Docusate [Colace] 100 mg PO BID capsule 03/11/18 [Rx] MOM Conc [MILK OF MAGNESIA conc] 10 ml PO DAILY PRN ud.liq 03/11/18 [Rx] Melatonin 6 mg PO HS PRN tablet 03/11/18 [Rx] OxyCODONE Immed Rel [Roxicodone 5 MG] 5 mg PO Q6HR PRN 7 Days #28 tablet [Rx] Polyethylene Glycol 3350 [MiraLAX] 17 gm PO DAILY powd.pack 03/11/18 [Rx] Rivaroxaban [Xarelto] 15 mg PO BID tablet 03/11/18 [Rx] Allergies/Adverse Reactions: 3 Allergy/AdvReac Type Severity Reaction Status Date / Time No Known Allergies Allergy Verified 02/23/18 12:30 Date of admission: 02/26/18 15:21 Primary care physician: Aron Patel MD Consults: 02/26/18 16:53 Consult to Occupational Therapy [CONS] Routine Comment: status post hip sx Reason for Consult: post hip sx Does patient have active BEDREST order?: No Is patient medically & hemodynamically stable?: Yes Patient assessed for mobility or mobilized this visit?: No Consult to Physical Therapy [CONS] Routine Comment: post hip sx Reason for Consult: post hip sx Does patient have active BEDREST order?: No Is patient medically & hemodynamically stable?: Yes Patient assessed for mobility or mobilized this visit?: No Consult to Counter Former [CONS] Routine Reason for SW Consult: possible HH - Constitutional Vitals: Temp Pulse Resp BP Pulse Ox 98.1 F 72 16 122/65 97 03/11/18 06:35 03/11/18 06:35 03/11/18 06:35 03/11/18 06:35 03/11/18 06:35 - Patient Status Disposition: Transfer SNF - Discharge Instructions - Diet and Activity Activity: as per physical therapy Diet: regular diet
--- NOTE | 2018-03-11 11:19 | Physician Discharge Referral ---
ExtendedCare Referral Info Transfer To: [facility] Provider in Charge: Hany Provider in Charge after Transfer: PCP Kaleb) Institutional Level of Care: Skilled - Diagnosis (1) Status post total hip replacement, right Priority: Primary Status: Acute (2) Right leg DVT Priority: Secondary Status: Acute (3) Acute blood loss anemia Priority: Secondary Status: Acute (4) RLS (restless legs syndrome) Priority: Secondary Status: Chronic (5) Cold sore Priority: Secondary Status: Resolved (6) UTI (urinary tract infection) Priority: Secondary Status: Resolved Prognosis: Good Aware of Diagnosis: Patient, Family Aware of Prognosis: Patient, Family - Transfer Medications Prescriptions: OxyCODONE Immed Rel [Roxicodone 5 MG] 5 mg PO Q6HR PRN 7 Days #28 tablet PRN Reason: Severe Pain Magnesium Gluconate 30 mg PO HS 30 Days tablet Home Medications: Acetaminophen [Tylenol] 650 mg PO Q6HR PRN 02/23/18 [History] Cholecalciferol (D-3) [Vitamin D] 1,000 unit PO DAILY 02/23/18 [History] Multivitamin [One Daily Multivitamin] 1 tab PO DAILY 02/23/18 [History] Docusate [Colace] 100 mg PO BID capsule 03/11/18 [Rx] MOM Conc [MILK OF MAGNESIA conc] 10 ml PO DAILY PRN ud.liq 03/11/18 [Rx] Magnesium Gluconate 30 mg PO HS 30 Days tablet 03/11/18 [Rx] Melatonin 6 mg PO HS PRN tablet 03/11/18 [Rx] OxyCODONE Immed Rel [Roxicodone 5 MG] 5 mg PO Q6HR PRN 7 Days #28 tablet [Rx] Polyethylene Glycol 3350 [MiraLAX] 17 gm PO DAILY powd.pack 03/11/18 [Rx] Rivaroxaban [Xarelto] 15 mg PO BID tablet 03/11/18 [Rx] Allergies/Adverse Reactions: 3 Allergy/AdvReac Type Severity Reaction Status Date / Time No Known Allergies Allergy Verified 02/23/18 12:30 - Respiratory Orders Smoking Cessation: Smoking cessation has been advised. For more information, call the [place] Tobacco Quit Line at 2-379-NQOI-NOW. - Lab Orders Lab Orders: Other (include drug levels w/frequency) (CBC with differential, BMP in 5 days) - Rehabiliation Orders Rehab Potential: Good Rehab Orders: Evaluation for Physical Therapy, Evaluation for Occupational Therapy - Diet Orders Regular CERTIFICATION: I certify that the transfer of the above named patient to an Extended Care Facility is necessary for the continuing treatment of the diagnosis listed. The above information is true and accurate reflection of patient's current condition. Confidential - Redisclosure prohibited without a patient's written consent.
[2018-03-11] MEDS ORDERED: Acetaminophen 325 MG TABLET PO PRN (12:15)
[2018-03-11] MEDS: Cholecalciferol (D-3) 1,000 UNIT TABLET PO SCH (12:41)
[2018-03-11] MEDS: Cyanocobalamin (B-12) 1,000 MCG TABLET PO SCH (12:41)
== END 2018-03-11 13:10 | DRG 560 ==
LOC: INPPIK 15:21
PROVIDERS: ADMIT Internal Medicine; ATTEND Internal Medicine

== ENCOUNTER 2018-05-08 16:56 | Inpatient (IN) ==
[2018-05-15] MEDS ORDERED: Acetaminophen 325 MG TABLET PO PRN (17:05)
[2018-05-15] MEDS ORDERED: Mag Hydrox/Al Hydrox/Simeth 30 ML UDC PO PRN (17:05)
[2018-05-15] MEDS: Doxycycline 100 MG CAPSULE PO SCH (19:59)
[2018-05-15] MEDS ORDERED: Magnesium Oxide 400 MG TABLET PO SCH (21:00)
[2018-05-16] MEDS: Doxycycline 100 MG CAPSULE PO SCH ×2 (07:42→19:57)
[2018-05-16] MEDS: Lactobacillus 1 EACH CAP.SPRINK PO SCH (07:42)
[2018-05-16] MEDS ORDERED: Ascorbic Acid 500 MG TABLET PO SCH (09:00)
[2018-05-16] MEDS ORDERED: Cholecalciferol (D-3) 1,000 UNIT TABLET PO SCH (09:00)
[2018-05-16] MEDS ORDERED: Multivit/Ca/Min/Fe/FA 1 TAB TABLET PO SCH (09:00)
--- NOTE | 2018-05-16 19:33 | Internal Med History&Physical ---
Date of Encounter: 05/16/18 Time of Encounter: 19:00 Assessment and Plan (1) Positive serology for Erlichiosis Current visit: Yes Status: Acute Continue doxycycline with lactobacillus to complete 2 week course. (2) Acute blood loss anemia Current visit: No Status: Acute Anemia testing 05/04/2018 showed iron 73, transferrin saturation 40%, transferrin 130, ferritin > 1500, B12 > 1500, and folate > 22.3. Remain off Xarelto and monitor CBC. (3) Right leg DVT Current visit: No Status: Resolved Remain off Xarelto due to GI bleed. Qualifiers: Affected thrombotic vein of extremity: unspecified lower extremity distal vein Chronicity: acute Qualified Code(s): I82.4Z1 - Acute embolism and thrombosis of unspecified deep veins of right distal lower extremity (4) Weakness Current visit: No Status: Acute PT and OT evaluations have been ordered. (5) Thrombocytopenia Current visit: No Status: Acute Monitor platelet count periodically. Internal Medicine - H&P: HPI Chief complaint: Anemia, Ehrlichiosis Admitted From: Hospital to Hospital Transfer Plans for Post Hospital Care: Home History of present illness: Ms. Turpin is a 88 year old female who was transferred to [facility] swing bed after a May 02 [facility] hospitalization. She presented with weakness and diarrhea with positive SIRS criteria. She was found to have anemia and thrombocytopenia. GI bleed was found to be present and Xarelto was discontinued. Urology placed a right ureteral stent for right hydronephrosis and evidence of acute kidney injury with fever. Urine culture however showed no growth. Serology returned showing IgG positive and IgM negative for Erlichiosis. She was started on a course of oral doxycycline to complete 14 days. She was discharged to [facility] swing bed for ongoing treatment including therapy intervention. Past Med Surg Social Fam HX - Past Medical History Medical history: arthritis, DVT Additional medical history: OA Psychiatric history: no psych history - Past Surgical History Surgical History: hip replacement Additional surgical history: colonoscopy, d&c, colon polyps - Social History Smoking Status: Never smoker Smokeless Tobacco Status: No Alcohol use: none Drug use: none - Family History Mother Living Status: Hx Family Cancer: Yes (Breast) Father Living Status: Hx Family Cancer: Yes (Bladder) Internal Medicine - H&P: Meds Acetaminophen [Tylenol] 650 mg PO Q6HR PRN 02/23/18 [History] Cholecalciferol (D-3) [Vitamin D] 1,000 unit PO DAILY 02/23/18 [History] Multivitamin [One Daily Multivitamin] 1 tab PO DAILY 02/23/18 [History] Ascorbate Calcium [Vitamin C] 500 mg PO DAILY 05/02/18 [History] Doxycycline 100 mg PO BID 6 Days capsule 05/15/18 [Rx] Lactobacillus [Culturelle] 1 each PO DAILY cap.sprink 05/15/18 [Rx] Lansoprazole [Prevacid] 30 mg PO QAM capsule. 05/15/18 [Rx] Mag Hydrox/Al Hydrox/Simeth [Maalox] 30 ml PO Q4H PRN udc 05/15/18 [Rx] Magnesium Oxide [Mag-Ox] 400 mg PO BID tablet 05/15/18 [Rx] 3 Allergy/AdvReac Type Severity Reaction Status Date / Time No Known Allergies Allergy Verified 05/02/18 12:23 All Systems PM: A 10-system review of systems was performed and is negative for pertinent findings except as documented above in the HPI. Review of systems: Review of systems from her February 2018 [facility] hospitalization were reviewed and revised as below. Gen.: Her weight is essentially unchanged at approximate 49 kg since the February 2018 hospitalization. Cardiovascular: She denies hypertension SD heart failure anginaor pulmonary embolus. She developed right posterior tibial, right peroneal, and right gastrocnemius vein DVT following hip replacement surgery February 2018. She had been on Xarelto since diagnosis but it was discontinued during her [facility] stay because of GI bleed. Respiratory: She is a lifelong nonsmoker and denies chronic lung disease GI: She denies disorders of her liver gallbladder or exocrine pancreas : She had a recent right ureteral stent placed because of right-sided hydronephrosis. She denies dysuria or kidney stones. She has had urinary retention requiring Allen catheter following hip replacement surgery February 2018. Neurologic: She denies large distribution strokes or seizures. Endocrine: She denies diabetes thyroid disease or hyperlipidemia Hematology/oncology: She had anemia and thrombocytopenia requiring platelet transfusions during her recent [facility] stay. She denies internal malignancies or other blood disorders. Psychiatric: She denies anxiety depression or other mental health issues [place] skeletal: She had right total hip replacement February 2018. She has DJD but denies gout or other bone joint or muscle disorders. - Constitutional Vitals: Temp Pulse Resp BP Pulse Ox 98.7 F 83 16 112/58 97 05/16/18 18:54 05/16/18 18:54 05/16/18 18:54 05/16/18 18:54 05/16/18 18:54 Exam: Gen.: She is a well-developed well-nourished female resting comfortably on the side of the bed who appears in no acute distress HEENT: Head is atraumatic and normocephalic. Eyes: EOMI. There is no scleral icterus. Mouth: Mucosa is moist. Neck: Supple and nontender. There is no thyromegaly or adenopathy noted. Heart: Regular without murmurs gallops or ectopics Lungs: No wheezes or crackles are heard. Abdomen: Soft and nontender. No masses or guarding are noted. Extremities: There is no cyanosis or clubbing noted. She has trace to 1+ edema of the right leg and 1-2+ edema of the left leg. Dorsalis pedis and posterior tibial pulses are trace palpable. Neurologic: Mental status: She is talkative and able to answer questions appropriate. Cranial nerves: Smile is symmetric. Forehead wrinkles bilaterally. Tongue protrudes midline. EOMI. Motor: There is no pronator drift. Cerebellar: Finger to nose is intact bilaterally. Skin: Warm and dry
[2018-05-16] MEDS: Magnesium Oxide 400 MG TABLET PO SCH (19:57)
[2018-05-17] MEDS: Doxycycline 100 MG CAPSULE PO SCH ×2 (09:49→20:09)
[2018-05-17] MEDS: Magnesium Oxide 400 MG TABLET PO SCH ×2 (09:49→20:09)
[2018-05-17] MEDS: Lactobacillus 1 EACH CAP.SPRINK PO SCH (09:50)
--- NOTE | 2018-05-17 15:24 | Internal Med Progress Note ---
Date of Encounter: 05/17/18 Time of Encounter: 15:15 - Assessment and plan (1) Positive serology for Erlichiosis Current Visit: Yes Status: Acute Assessment and plan: May 17. Continue doxycycline with lactobacillus through May 20. (2) Acute blood loss anemia Current Visit: No Status: Acute Assessment and plan: May 17. Anemia testing 05/04/2018 showed iron 73, transferrin saturation 40%, transferrin 130, ferritin > 1500, B12 > 1500, and folate > 22.3. Remain off Xarelto and monitor CBC. (3) Right leg DVT Current Visit: No Status: Resolved Assessment and plan: May 17. Remain off Xarelto due to GI bleed. Qualifiers: Affected thrombotic vein of extremity: unspecified lower extremity distal vein Chronicity: acute Qualified Code(s): I82.4Z1 - Acute embolism and thrombosis of unspecified deep veins of right distal lower extremity (4) Weakness Current Visit: No Status: Acute Assessment and plan: May 17. Continue PT and OT intervention. (5) Thrombocytopenia Current Visit: No Status: Acute Assessment and plan: May 17. Improving trend at [facility]. Monitor platelet count intermittently. - Subjective Interval history: May 17. She has no new complaints and feels well. - Constitutional Vitals: Temp Pulse Resp BP Pulse Ox 98.2 F 74 16 108/63 98 05/17/18 06:45 05/17/18 06:45 05/17/18 06:45 05/17/18 06:45 05/17/18 06:45 Exam: She is resting comfortably in bed and appears in no acute distress. Her affect is bright and cheerful. I reviewed her medications and lab results. Consult Discharge Plan - Plan Referrals: Aron Patel MD [Primary Care Provider] - 1 week
[2018-05-18 06:05] LABS: Basophils % 0.6 %; Eosinophils % 0.2 %; Hematocrit 27.6 % (35.3-44.9); Hemoglobin 9.2 g/dL (11.5-15.4); Immature Granulocytes % 0.4 % (0-4); Lymphocytes % 42.1 %; Mean Corpuscular HGB Conc 33.3 g/dL (31.6-35.5); Mean Corpuscular Hemoglobin 30.9 pg (28.0-33.3); Mean Corpuscular Volume 92.6 fL (83.0-100.0); Mean Platelet Volume 12.8 fL (9.4-12.4); Monocytes # 0.6 K/mcL (0.0-1.3); Monocytes % 12.3 %; Neutrophils # 2.1 K/mcL (1.6-8.9); Platelet Count 100 K/mcL (140-400); Red Blood Count 2.98 M/mcL (3.82-4.97); Red Cell Distribution Width 14.6 % (11.5-14.5); Segmented Neutrophils % 44.4 %
[2018-05-18 06:27] LABS: Calcium 8.9 mg/dL (8.6-10.3); Potassium 4.2 mEq/L (3.5-5.1)
[2018-05-18] MEDS: Magnesium Oxide 400 MG TABLET PO SCH ×2 (08:55→21:10)
[2018-05-18] MEDS: Doxycycline 100 MG CAPSULE PO SCH ×2 (08:55→21:10)
[2018-05-18] MEDS: Lactobacillus 1 EACH CAP.SPRINK PO SCH (08:55)
[2018-05-19] MEDS: Lactobacillus 1 EACH CAP.SPRINK PO SCH (09:07)
[2018-05-19] MEDS: Magnesium Oxide 400 MG TABLET PO SCH ×2 (09:07→20:15)
[2018-05-19] MEDS: Doxycycline 100 MG CAPSULE PO SCH ×2 (10:23→20:14)
--- NOTE | 2018-05-19 15:15 | Internal Med Progress Note ---
Date of Encounter: 05/19/18 Time of Encounter: 15:05 - Assessment and plan (1) Positive serology for Erlichiosis Current Visit: Yes Status: Acute Assessment and plan: May 17. Continue doxycycline with lactobacillus through May 20. (2) Acute blood loss anemia Current Visit: No Status: Acute Assessment and plan: May 17. Anemia testing 05/04/2018 showed iron 73, transferrin saturation 40%, transferrin 130, ferritin > 1500, B12 > 1500, and folate > 22.3. Remain off Xarelto and monitor CBC. May 19. Recheck labs in a.m. (3) Right leg DVT Current Visit: No Status: Resolved Assessment and plan: May 17. Remain off Xarelto due to GI bleed. Qualifiers: Affected thrombotic vein of extremity: unspecified lower extremity distal vein Chronicity: acute Qualified Code(s): I82.4Z1 - Acute embolism and thrombosis of unspecified deep veins of right distal lower extremity (4) Weakness Current Visit: No Status: Acute Assessment and plan: May 17. Continue PT and OT intervention. May 19. She is progressing well per therapist report. Anticipate discharge May 22. (5) Thrombocytopenia Current Visit: No Status: Acute Assessment and plan: May 17. Improving trend at [facility]. Monitor platelet count intermittently. May 19. Platelet count improved to 100 K on May 18. Recheck labs in a.m. (6) Acute renal insufficiency Current Visit: Yes Status: Acute Assessment and plan: May 19. Recheck labs in a.m. - Subjective Interval history: May 17. She has no new complaints and feels well. May 19. She has no new complaints. - Constitutional Vitals: Temp Pulse Resp BP Pulse Ox 98.3 F 71 17 107/61 91 05/19/18 06:36 05/19/18 06:36 05/19/18 06:36 05/19/18 06:36 05/19/18 06:36 Exam: She is resting comfortably in bed and appears in no acute distress. Her affect is bright and cheerful. Extremities show no edema. I reviewed her medications and lab results. Internal Medicine: Result - Labs CBC & Chem 7: 05/18/18 05:05 05/18/18 05:05 Consult Discharge Plan - Plan Referrals: Aron Patel MD [Primary Care Provider] - 1 week
[2018-05-20 06:08] LABS: Basophils # 0.1 K/mcL (0.0-0.2); Basophils % 1.4 %; Eosinophils % 0.2 %; Hematocrit 28.2 % (35.3-44.9); Hemoglobin 9.3 g/dL (11.5-15.4); Immature Granulocytes % 0.5 % (0-4); Lymphocytes # 1.8 K/mcL (0.6-4.6); Lymphocytes % 42.5 %; Mean Corpuscular Hemoglobin 30.7 pg (28.0-33.3); Mean Corpuscular Volume 93.1 fL (83.0-100.0); Mean Platelet Volume 12.6 fL (9.4-12.4); Monocytes # 0.5 K/mcL (0.0-1.3); Monocytes % 11.1 %; Neutrophils # 1.9 K/mcL (1.6-8.9); Platelet Count 113 K/mcL (140-400); Red Blood Count 3.03 M/mcL (3.82-4.97); Red Cell Distribution Width 14.8 % (11.5-14.5); Segmented Neutrophils % 44.3 %
[2018-05-20 06:26] LABS: Calcium 8.9 mg/dL (8.6-10.3); Magnesium 2.2 mg/dL (1.6-2.6); Potassium 3.8 mEq/L (3.5-5.1)
[2018-05-20 06:44] LABS: Platelet Estimate Decreased (Normal)
[2018-05-20] MEDS: Lactobacillus 1 EACH CAP.SPRINK PO SCH (08:15)
[2018-05-20] MEDS: Doxycycline 100 MG CAPSULE PO SCH ×2 (08:16→20:45)
[2018-05-20] MEDS: Magnesium Oxide 400 MG TABLET PO SCH ×2 (08:16→20:45)
[2018-05-21] MEDS: Lactobacillus 1 EACH CAP.SPRINK PO SCH (08:50)
[2018-05-21] MEDS: Doxycycline 100 MG CAPSULE PO SCH (08:50)
[2018-05-21] MEDS: Magnesium Oxide 400 MG TABLET PO SCH (08:51)
--- NOTE | 2018-05-21 12:48 | Internal Med Progress Note ---
Date of Encounter: 05/21/18 Time of Encounter: 12:40 - Assessment and plan (1) Positive serology for Erlichiosis Current Visit: Yes Status: Acute Assessment and plan: May 17. Continue doxycycline with lactobacillus through May 20. May 21. Discontinue doxycycline and lactobacillus. (2) Acute blood loss anemia Current Visit: No Status: Acute Assessment and plan: May 17. Anemia testing 05/04/2018 showed iron 73, transferrin saturation 40%, transferrin 130, ferritin > 1500, B12 > 1500, and folate > 22.3. Remain off Xarelto and monitor CBC. May 19. Recheck labs in a.m. May 21. Recheck labs in a.m. (3) Right leg DVT Current Visit: No Status: Resolved Assessment and plan: May 17. Remain off Xarelto due to GI bleed. Qualifiers: Affected thrombotic vein of extremity: unspecified lower extremity distal vein Chronicity: acute Qualified Code(s): I82.4Z1 - Acute embolism and thrombosis of unspecified deep veins of right distal lower extremity (4) Weakness Current Visit: No Status: Acute Assessment and plan: May 17. Continue PT and OT intervention. May 19. She is progressing well per therapist report. Anticipate discharge May 22. May 21. Bed unavailable at [facility] at this time. Anticipate discharge early next week. (5) Thrombocytopenia Current Visit: No Status: Acute Assessment and plan: May 17. Improving trend at [facility]. Monitor platelet count intermittently. May 19. Platelet count improved to 100 K on May 18. Recheck labs in a.m. May 21. Recheck labs in a.m. (6) Acute renal insufficiency Current Visit: Yes Status: Acute Assessment and plan: May 19. Recheck labs in a.m. May 21. Recheck labs in a.m. - Subjective Interval history: May 17. She has no new complaints and feels well. May 19. She has no new complaints. May 21. She has no new complaints and feels well except fatigue. - Constitutional Vitals: Temp Pulse Resp BP Pulse Ox 98.1 F 65 16 121/67 98 05/21/18 06:50 05/21/18 06:50 05/21/18 06:50 05/21/18 06:50 05/21/18 06:50 Exam: She is resting comfortably in bed and is in no acute distress. Her affect is bright and cheerful. I reviewed her medications and lab results. Internal Medicine: Result - Labs CBC & Chem 7: 05/20/18 06:00 05/20/18 06:00 Consult Discharge Plan - Plan Referrals: Aron Patel MD [Primary Care Provider] - 1 week
[2018-05-22 05:32] LABS: Basophils # 0.1 K/mcL (0.0-0.2); Basophils % 2.6 %; Eosinophils % 0.7 %; Hematocrit 27.8 % (35.3-44.9); Immature Granulocytes % 0.5 % (0-4); Lymphocytes # 1.9 K/mcL (0.6-4.6); Lymphocytes % 44.2 %; Mean Corpuscular HGB Conc 32.4 g/dL (31.6-35.5); Mean Corpuscular Hemoglobin 30.4 pg (28.0-33.3); Mean Corpuscular Volume 93.9 fL (83.0-100.0); Mean Platelet Volume 11.9 fL (9.4-12.4); Monocytes # 0.5 K/mcL (0.0-1.3); Monocytes % 11.3 %; Neutrophils # 1.7 K/mcL (1.6-8.9); Platelet Count 128 K/mcL (140-400); Red Blood Count 2.96 M/mcL (3.82-4.97); Red Cell Distribution Width 14.6 % (11.5-14.5); Segmented Neutrophils % 40.7 %
[2018-05-22 05:56] LABS: Calcium 8.9 mg/dL (8.6-10.3)
--- NOTE | 2018-05-22 11:50 | Internal Med Progress Note ---
Date of Encounter: 05/22/18 Time of Encounter: 11:35 - Assessment and plan (1) Positive serology for Erlichiosis Current Visit: Yes Status: Acute Assessment and plan: May 17. Continue doxycycline with lactobacillus through May 20. May 21. Discontinue doxycycline and lactobacillus. (2) Acute blood loss anemia Current Visit: No Status: Acute Assessment and plan: May 17. Anemia testing 05/04/2018 showed iron 73, transferrin saturation 40%, transferrin 130, ferritin > 1500, B12 > 1500, and folate > 22.3. Remain off Xarelto and monitor CBC. May 19. Recheck labs in a.m. May 21. Recheck labs in a.m. May 22. Hemoglobin stable at 9.0. (3) Right leg DVT Current Visit: No Status: Resolved Assessment and plan: May 17. Remain off Xarelto due to GI bleed. Qualifiers: Affected thrombotic vein of extremity: unspecified lower extremity distal vein Chronicity: acute Qualified Code(s): I82.4Z1 - Acute embolism and thrombosis of unspecified deep veins of right distal lower extremity (4) Weakness Current Visit: No Status: Acute Assessment and plan: May 17. Continue PT and OT intervention. May 19. She is progressing well per therapist report. Anticipate discharge May 22. May 21. Bed unavailable at [facility] at this time. Anticipate discharge early next week. May 22. Bed available at [facility] 05/23/2018. (5) Thrombocytopenia Current Visit: No Status: Acute Assessment and plan: May 17. Improving trend at [facility]. Monitor platelet count intermittently. May 19. Platelet count improved to 100 K on May 18. Recheck labs in a.m. May 21. Recheck labs in a.m. May 22. Platelet count improved to 128K. (6) Acute renal insufficiency Current Visit: Yes Status: Acute Assessment and plan: May 19. Recheck labs in a.m. May 21. Recheck labs in a.m. May 22. Creatinine improved to 1.32. - Subjective Interval history: May 17. She has no new complaints and feels well. May 19. She has no new complaints. May 21. She has no new complaints and feels well except fatigue. May 22. She has no new complaints - Constitutional Vitals: Temp Pulse Resp BP Pulse Ox 98.4 F 64 16 112/61 98 05/22/18 06:51 05/22/18 06:51 05/22/18 06:51 05/22/18 06:51 05/22/18 06:51 Exam: She is resting comfortably in bed and appears in no acute distress. Her affect is bright and cheerful. I reviewed her medications and lab results. Internal Medicine: Result - Labs CBC & Chem 7: 05/22/18 05:22 05/22/18 05:22 Labs: Short CBC 05/22/18 Range/Units 05:22 WBC 4.3 (4.3-11.1) K/mcL Hgb 9.0 L (11.5-15.4) g/dL Hct 27.8 L (35.3-44.9) % Plt Count 128 L (140-400) K/mcL Neutrophils # 1.7 (1.6-8.9) K/mcL BMP 05/22/18 05:22 Sodium 139 Potassium 4.0 Chloride 104 Carbon Dioxide 31 H BUN 27 H Creatinine 1.32 H Glucose 76 Calcium 8.9 Consult Discharge Plan - Plan Referrals: Aron Patel MD [Primary Care Provider] - 1 week
[2018-05-23 07:20] VITALS: BP 125/60
--- NOTE | 2018-05-23 09:43 | Discharge Summary ---
Date of Encounter: 05/23/18 Time of Encounter: 09:37 - Discharge Diagnosis (1) Positive serology for Erlichiosis Priority: Primary Status: Acute (2) Acute blood loss anemia Priority: Secondary Status: Acute (3) Right leg DVT Priority: Secondary Status: Resolved Qualifiers: Affected thrombotic vein of extremity: unspecified lower extremity distal vein Chronicity: acute Qualified Code(s): I82.4Z1 - Acute embolism and thrombosis of unspecified deep veins of right distal lower extremity (4) Weakness Priority: Secondary Status: Acute (5) Thrombocytopenia Priority: Secondary Status: Acute (6) Acute renal insufficiency Priority: Secondary Status: Acute Hospital course: Ms. Turpin is a 88 year old female who was transferred to [facility] swing bed after a May 02 [facility] hospitalization. She presented with weakness and diarrhea with positive SIRS criteria. She was found to have anemia and thrombocytopenia. GI bleed was found to be present and Xarelto was discontinued. Urology placed a right ureteral stent for right hydronephrosis and evidence of acute kidney injury with fever. Urine culture however showed no growth. Serology returned showing IgG positive and IgM negative for Erlichiosis. She was started on a course of oral doxycycline to complete 14 days. She was discharged to [facility] swing bed for ongoing treatment including therapy intervention. Initial orders were written by the discharging physicians at [facility]. I saw her on May 16 and performed a swing bed history and physical. She continued with doxycycline and lactobacillus through May 21. WBC remained normal without left shift on differential. Creatinine sherly to 1.51 on May 20 but had improved 1.32 on May 22. Platelet count gradually sherly to 128 K on May 22. She had physical therapy and occupational therapy intervention with satisfactory progress. On May 23 arrangements were complete for her to be discharged to [facility] fast track for ongoing care needs. She will follow with me there. - Time Spent with Patient Total time spent providing and/or coordinating discharge services: - Discharge Medications Allergies/Adverse Reactions: 3 Allergy/AdvReac Type Severity Reaction Status Date / Time rivaroxaban [From Xarelto] Allergy See Verified 05/22/18 16:21 Comments Date of admission: 05/15/18 16:44 Primary care physician: Aron Patel MD Consults: 05/15/18 17:12 Consult to Occupational Therapy [CONS] Routine Comment: Evaluate, develop and implement POC Reason for Consult: weakness Does patient have active BEDREST order?: No Is patient medically & hemodynamically stable?: Yes Consult to Physical Therapy [CONS] Routine Comment: Evaluate, develop and implement POC Reason for Consult: weakness Does patient have active BEDREST order?: No Is patient medically & hemodynamically stable?: Yes - Constitutional Vitals: Temp Pulse Resp BP Pulse Ox 98.3 F 62 16 125/60 99 05/23/18 07:17 05/23/18 07:17 05/23/18 07:17 05/23/18 07:17 05/23/18 07:17 - Patient Status Disposition: Transfer SNF - Discharge Instructions - Diet and Activity Activity: as per physical therapy Diet: regular diet
--- NOTE | 2018-05-23 09:49 | Physician Discharge Referral ---
ExtendedCare Referral Info Transfer To: [facility] Provider in Charge: Hany Provider in Charge after Transfer: PCP (Hany) - Diagnosis (1) Positive serology for Erlichiosis Priority: Primary Status: Acute (2) Acute blood loss anemia Priority: Secondary Status: Acute (3) Right leg DVT Priority: Secondary Status: Resolved (4) Weakness Priority: Secondary Status: Acute (5) Thrombocytopenia Priority: Secondary Status: Acute (6) Acute renal insufficiency Priority: Secondary Status: Acute Prognosis: Good Aware of Diagnosis: Patient, Family Aware of Prognosis: Patient, Family - Transfer Medications Allergies/Adverse Reactions: 3 Allergy/AdvReac Type Severity Reaction Status Date / Time rivaroxaban [From Xarelto] Allergy See Verified 05/22/18 16:21 Comments - Respiratory Orders Smoking Cessation: Smoking cessation has been advised. For more information, call the [employer] Quit Line at 1-633-ZVXQNOW. - Lab Orders Lab Orders: Other (include drug levels w/frequency) (CBC with differential, BMP in 3 days) - Mobility Orders Ambulate - Rehabiliation Orders Rehab Potential: Good Rehab Orders: Evaluation for Physical Therapy, Evaluation for Occupational Therapy CERTIFICATION: I certify that the transfer of the above named patient to an Extended Care Facility is necessary for the continuing treatment of the diagnosis listed. The above information is true and accurate reflection of patient's current condition. Confidential - Redisclosure prohibited without a patient's written consent.
== END 2018-05-23 13:25 | DRG 868 ==
LOC: INPPIK 05-15 16:44
PROVIDERS: ADMIT Internal Medicine; ATTEND Internal Medicine